=== PATIENT | female | born 1990 | race American Indian/Alaskan Native ===

== ENCOUNTER 2016-12-09 16:47 | Emergency (ER) | payer OTHER ==
[~2016-12-09 16:47] MED LIST: traMADol 50 MG Tab PO ONE
[2016-12-09 16:58] VITALS: BP 125/85
[2016-12-09] MEDS ORDERED: Take Home: traMADol 50 MG, 4 Tab Pack PO ONE (17:46)
--- NOTE | 2016-12-09 17:47 | EDM.PDOC ---
ED HPI Trauma - General Chief Complaint: Upper Extremity Injury/Pain Stated Complaint: right shoulder pain Time Seen by Provider: 12/09/16 17:13 Source: Reports: Patient History Limitations: Reports: No limitations - History of Present Illness INITIAL COMMENTS - FREE TEXT/NARRATIVE: Didi is a 25 yo female who presents to the ER with complaints of ongoing right shoulder pain. States she tore her rotator cuff back in August and has been seen by an specialist who recommended she undergo physical therapy. She had an MRI that showed a partial rotator cuff tear. She was taken Tramadol in the past but up till recently has only taken ibuprofen and Tylenol. Since starting the physical therapy her arm has been bothering more. Requesting something for the discomfort. Allergies/ADRs: Allergies No Known Allergies Allergy (Verified 12/09/16 16:58) Home Medications: Ambulatory Orders Insulin Aspart [NovoLOG] 15 - 30 units SUBCUT TID PRN 05/14/14 [Confirmed ] Insulin Detemir [Levemir Flextouch] 50 units SUBCUT BID 05/14/14 [Confirmed ] Lisinopril [Lisinopril] 20 mg PO DAILY 07/28/15 [Confirmed 12/09/16] DULoxetine [Cymbalta] 60 mg PO DAILY 10/14/16 [Confirmed 12/09/16] SitaGLIPtin [Januvia] 100 mg PO DAILY 10/14/16 [Confirmed 12/09/16] Amitriptyline [Elavil] 10 mg PO ASDIRECTED PRN 12/09/16 [Confirmed 12/09/16] Past Medical History - Past Health History Medical/Surgical History: Denies Medical/Surgical History HEENT History: Reports: Impaired vision Cardiovascular History: Reports: High cholesterol, Hypertension Gastrointestinal History: Reports: Gastritis Genitourinary History: Reports: Other (see below) Other Genitourinary History: 07/27/15 states had yeast infection about 1 year ago Musculoskeletal History: Reports: Fracture Other Musculoskeletal History: Left arm Neurological History: Reports: Headaches, chronic, Migraines Psychiatric History: Reports: Depression, Suicidal ideation Endocrine/Metabolic History: Reports: Diabetes, type I, Obesity/BMI 30+ - Infectious Disease History Infectious Disease History: Reports: Chicken pox - Past Surgical History GI Surgical History: Reports: Cholecystectomy Social & Family History - Family History Family Medical History: Noncontributory Cardiac: Reports: Hypertension Other Cardiac Family History: both parents. Endocrine/Metabolic: Reports: Diabetes, type II Other Endocrine/Metabolic Family History: Both parents Oncologic: Reports: Breast Other Oncologic Family History: Both sides of family. - Tobacco Use Smoking Status *Q: Former Smoker Years of Tobacco use: 1 Packs/Tins Daily: 0.1 Used Tobacco, but Quit: Yes Month Tobacco Last Used: November 2016 Second Hand Smoke Exposure: Yes - Caffeine Use Caffeine Use: Reports: Coffee - Alcohol Use Days Per Week of Alcohol Use: 0 - Recreational Drug Use Recreational Drug Use: No - Living Situation & Occupation Living situation: Reports: with family Review of Systems - Review of Systems Review Of Systems: ROS reveals no pertinent complaints other than HPI. Trauma Exam - Physical Exam Exam: See Below General Appearance: Reports: alert, no apparent distress Extremities: Reports: no evidence of injury, normal range of motion, pain with movement (abduction), other (negative empty can and speeds test.). Denies: joint effusion Neurologic: Reports: no motor/sensory deficits, alert Skin: Reports: Normal color, Warm/dry Course - Vital Signs Last Recorded V/S: Last Vital Signs Temp 98.5 F 12/09/16 16:54 Pulse 100 12/09/16 16:54 Resp 16 12/09/16 16:54 BP 125/85 12/09/16 16:54 Pulse Ox 98 12/09/16 16:54 Departure - Departure Time of Disposition: 17:46 Disposition: Home, Self-Care 01 Condition: good Clinical Impression: Right rotator cuff tear Qualifiers: Rotator cuff tear extent: incomplete Qualified Code(s): M75.111 - Incomplete rotator cuff tear or rupture of right shoulder, not specified as traumatic Instructions: Tendinitis, [id number], Shoulder Pain, [id number] Forms: ED Department Discharge Additional Instructions: 1) Tramadol 50mg - 1 tablet every 6 hours as needed. Only given 4 tablets and will not dispense anymore from the ER. 2) Follow up with primary provider to discuss ongoing discomfort and further treatment. - Problem List & Annotations (1) Right rotator cuff tear SNOMED Code(s): 742507302 Code(s): M75.101 - UNSP ROTATR-CUFF TEAR/RUPTR OF RIGHT SHOULDER, NOT TRAUMA Status: Acute Current Visit: Yes - Problem List Review Problem List Initiated/Reviewed/Updated: Yes - Assessment/Plan Plan: See additional instructions.
== END 2016-12-09 17:53 | disposition home or self-care (01) ==
LOC: CC.ED 16:47
DX: M75.111 Incomplete rotator cuff tear or rupture of right shoulder, not specified as traumatic (principal); E78.00 Pure hypercholesterolemia, unspecified; I10 Essential (primary) hypertension; E10.9 Type 1 diabetes mellitus without complications; E66.9 Obesity, unspecified; Z90.49 Acquired absence of other specified parts of digestive tract; Z79.01 Long term (current) use of anticoagulants; Z87.891 Personal history of nicotine dependence
CPT/HCPCS: 99282; A9270

== ENCOUNTER 2022-06-07 20:53 | Emergency (ER) | payer OTHER, BC ==
[2022-06-07 21:00] VITALS: BP 128/57; PULSE 82
== END 2022-06-07 21:13 | disposition home or self-care (01) ==
LOC: CC.ED 20:53
DX: S96.912A Strain of unspecified muscle and tendon at ankle and foot level, left foot, initial encounter (principal); I10 Essential (primary) hypertension; E11.9 Type 2 diabetes mellitus without complications; E66.9 Obesity, unspecified; Z68.43 Body mass index [BMI] 50.0-59.9, adult; Z79.4 Long term (current) use of insulin; Z79.899 Other long term (current) drug therapy; Z79.84 Long term (current) use of oral hypoglycemic drugs
CPT/HCPCS: 99283

== ENCOUNTER 2024-09-19 23:18 | Emergency (ER) | payer BC, OTHER ==
[2024-09-19 23:36] VITALS: BP 120/70; PULSE 96
[2024-09-20] MEDS: Oseltamivir 75 MG Cap PO ONE (00:29)
== END 2024-09-20 00:35 | disposition home or self-care (01) ==
LOC: CC.ED 23:18
DX: B34.9 Viral infection, unspecified (principal); I10 Essential (primary) hypertension; Z90.49 Acquired absence of other specified parts of digestive tract; F17.210 Nicotine dependence, cigarettes, uncomplicated; Z79.4 Long term (current) use of insulin; Z79.84 Long term (current) use of oral hypoglycemic drugs
CPT/HCPCS: 99284; A9270-GY

== ENCOUNTER 2024-10-07 21:08 | Emergency (ER) | payer OTHER ==
[2024-10-07 21:16] VITALS: BP 103/59
[2024-10-07] MEDS ORDERED: Nystatin Susp 100,000 Unit/ML 5 ML UD Cup PO ONE (21:41)
[2024-10-07] MEDS ORDERED: Lidocaine 2% Viscous Solution 15 ML UD PO ONE (21:42)
[2024-10-07] MEDS ORDERED: Al and Mag Hydroxide/Diphenhydramine/Lidocaine/Simethicone 237 ML Bottle PO PRN (21:47)
[2024-10-07] MEDS: Al and Mag Hydroxide/Diphenhydramine/Lidocaine/Simethicone 237 ML Bottle PO STA (22:54)
== END 2024-10-07 22:55 | disposition home or self-care (01) ==
LOC: CC.ED 21:08
DX: K14.4 Atrophy of tongue papillae (principal); I10 Essential (primary) hypertension; Z79.85 Long-term (current) use of injectable non-insulin antidiabetic drugs; Z79.4 Long term (current) use of insulin; Z79.84 Long term (current) use of oral hypoglycemic drugs; Z79.899 Other long term (current) drug therapy; Z90.49 Acquired absence of other specified parts of digestive tract; Z87.891 Personal history of nicotine dependence
CPT/HCPCS: 99283; A9270